=== PATIENT | female | born 1960 | race Caucasian/White ===

== ENCOUNTER → 2020-11-30 10:44 | Outpatient (CLI) | payer BC, SELFPAY ==
[2020-11-30 08:07] VITALS: BMI 28.3
--- NOTE | 2020-11-30 09:00 | FLU_PTH ---
PATIENT: PEÑA ERICKSON LOC: [facility] U#:[id number] AGE/SX: 65/F ROOM: RE11/30/[address]: Dr. David Gamez MD : [id number] BED: DIS: SPEC #: [id number] RECD: 11/30/20 09:55 STATUS: RICHIE LELA #: [id number] LUCAS: 11/30/20 09:[address]: David Gamez DEPT: CYTOLOGY RECD BY: Gricelda Cao ENTERED: 11/30/20 11:11 SP TYPE: Fluid OTHR DR: Deborah Villanueva, AEROSPACE QUALITY ENGINEER-C Tissues: Thyroid gland, NOS Procedures: Special Stain Group II Surgery Specimen Level IV Cytospin Fluid HEADER OPERATION: Fine needle aspiration, left thyroid cyst PRE-OP DIAGNOSIS: Left thyroid cyst TISSUE SUBMITTED: Left thyroid cyst fluid for cytology DIAGNOSIS CYTOLOGY Fine needle aspiration, left thyroid cyst (cytospin and cell block): Negative for malignant cells. See comment. AM:silvio 12/01/2020 COMMENT The specimen primarily contains blood and scattered macrophages suggesting a cyst. Clinical correlation is necessary. CYTOLOGY STUDY Slides are reviewed. CYTOLOGY GROSS Received is 4 ml of dark brown fluid labeled with the patient's name and and designated per the requisition as left thyroid. Submitted for cytology preparation including cell block. / silvio 11/30/2020 TC:5 CPT: 67580, 47460
== END ==
PROVIDERS: PCP Nurse Practitioner Primary Care; Referring Provider Surgery; Visit Provider Surgery
DX: E04.1 Nontoxic single thyroid nodule (principal)
CPT/HCPCS: 88108; 88305; 88313